=== PATIENT | male | born 1960 | race African-American/Black ===

== ENCOUNTER 2020-10-04 16:49 | Emergency (ER) | payer SELFPAY ==
[~2020-10-04] VITALS: Ht 195.6 cm; Wt 89.0 kg
--- NOTE | 2020-10-04 18:03 | EKG ---
[address] [address] Test Date: 2020-10-04 Test Time: 17:07:14 Pat Name: MIRTHA MOTT Department: Room: Gender: M Mica Splitter: RACHEL : 1960 Requested By: ARTI RYAN Order Number: [id number] Reading MD: Elijah Boston Measurements Intervals [place] Rate: 96 P: 41 NH: 122 QRS: 61 QRSD: 84 T: 30 QT: 334 QTc: 428 Interpretive Statements SINUS RHYTHM Electronically Signed On 10-04-2020 18:50:53 CONTINUOUS LINTER DRIER OPERATOR by Elijah Boston
--- NOTE | 2020-10-04 18:14 | PHYS DOC ---
Adult General Chief Complaint Chief Complaint: SUICIDAL IDEATION HPI HPI Patient is a 59-year-old male patient presents with suicidal ideation. Patient reports he has been had increased rest at home with last several weeks, which has gotten worse. States he has not been sleeping very well for the past couple nights, states he has had increased alcohol intake, up to approximately 8 beers per night. States today he had thoughts of harming self, stated he had plan to overdose on a bottle of pills. States he has never had any suicidal thoughts in the past or depression. States he just knows he is not himself. Denies any suicidal attempts, denies any actual self-harm, denies any thoughts of harming others or homicidal ideation. Does report he had some EtOH this morning, has not had any since that time. (ARTI RYAN APRN) Review of Systems Review of Systems Constitutional: Denies fever or chills [] Eyes: Denies change in visual acuity, redness, or eye pain [] HENT: Denies nasal congestion or sore throat [] Respiratory: Denies cough or shortness of breath [] Cardiovascular: No additional information not addressed in HPI [] GI: Denies abdominal pain, nausea, vomiting, bloody stools or diarrhea [] : Denies dysuria or hematuria [] Musculoskeletal: Denies back pain or joint pain [] Integument: Denies rash or skin lesions [] Neurologic: Denies headache, focal weakness or sensory changes [] Endocrine: Denies polyuria or polydipsia [] All other systems were reviewed and found to be within normal limits, except as documented in this note. (ARTI RYAN APRN) Allergies Allergies Allergies Coded Allergies Type Severity Reaction Last Updated Verified No Known Drug Allergies 10/04/20 No (ARTI RYAN APRN) Physical Exam Physical Exam Constitutional: Well developed, well nourished, no acute distress, non-toxic appearance. [] HENT: Normocephalic, atraumatic, bilateral external ears normal, oropharynx moist, no oral exudates, nose normal. [] Eyes: PERRLA, EOMI, conjunctiva normal, no discharge. [] Neck: Normal range of motion, no tenderness, supple, no stridor. [] Cardiovascular:Heart rate regular rhythm, no murmur [] Lungs & Thorax: Bilateral breath sounds clear to auscultation [] Abdomen: Bowel sounds normal, soft, no tenderness, no masses, no pulsatile masses. [] Skin: Warm, dry, no erythema, no rash. [] Back: No tenderness, no CVA tenderness. [] Extremities: No tenderness, no cyanosis, no clubbing, ROM intact, no edema. [] Neurologic: Alert and oriented X 3, normal motor function, normal sensory function, no focal deficits noted. [] Psychologic: Affect flat, judgement normal, mood depressed. [] (ARTI RYAN APRN) EKG EKG Normal sinus rhythm, no ST changes per Dr. Herbert @ 4705. [] (ARTI RYAN APRN) Radiology/Procedures Radiology/Procedures [] (ARTI RYAN APRN) Heart Score Risk Factors: Risk Factors: DM, Current or recent (<one month) smoker, HTN, HLP, family history of CAD, obesity. Risk Scores: Risk Factors: DM, Current or recent (<one month) smoker, HTN, HLP, family history of CAD, obesity. (ARTI RYAN APRN) Course & Med Decision Making Course & Med Decision Making Pertinent Labs and Imaging studies reviewed. (See chart for details) [] Reviewed results of lab imaging with patient, without acute abnormalities. P atient cleared for mental health screen. Limit of screen, patient to be going home on safety plan. Patient agreed with this plan. We will also start patient on blood pressure medication again, as he had previously been taking however has been out of his medication for a while. Will provide short acting blood pressure condition. Lower blood pressure restarting his blood pressure medication tomorrow morning. Patient reports he has good support system at home, family and children. Reports he understands he made a mistake yesterday when he reports he tried some drugs to do with the situation and realizes that this was not the best decision. 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 Patient does report he is going to decrease his alcohol intake and he understands what he needs to do now, reports he wants to return to [place] as he previously had been and live a healthier life. Will provide dose of Clonidine tonight, due to hypertension here, and patient to Restart his Amlodipine tomorrow AM. (ARTI RYAN APRN) Dragon Disclaimer Dragon Disclaimer This electronic medical record was generated, in whole or in part, using a voice recognition dictation system. (ARTI RYAN APRN) Departure Departure: Impression: Primary Impression: Depression Additional Impressions: Suicidal ideation Hypertension Disposition: 01 DC HOME SELF CARE/HOMELESS Condition: STABLE Referrals: PCP,NO (PCP) Patient Instructions: Depression, Adult, Hypertension Additional Instructions: As we discussed and as discussed with your counselor henrietta, make sure you are following the steps outlined in your safety plan. Stay with your family and friends. Continue to avoid alcohol and other illicit substances. Contact the crisis line if you start to feel suicidal, or increased depression which you cannot handle. Make sure you are taking your blood pressure medication as prescribed, your 30-day supply, after this you need to contact your primary care provider to have a refill. Try to plan for this refill well before the 30 days to have sufficient time to get in to a clinic evaluation and monitoring of your blood pressure. Scripts Amlodipine Besylate (AMLODIPINE BESYLATE) 5 Mg Tablet 1 TAB PO DAILY for hypertension, #30 TAB 0 Refills Contact your primary care provider for refills Prov: ARTI RYAN APRN 10/04/20 Attending Co-Sign Attending Co-Sign The patient was seen and interviewed as well as examined at the bedside. The chart was reviewed. The case was discussed. Agree with the plan of care. (HA KURTZ MD) Problem Qualifiers Primary Impression: Depression Depression Type: other depression Qualified Codes: F32.89 - Other specified depressive episodes Additional Impressions: Hypertension Hypertension type: essential hypertension Qualified Codes: I10 - Essential (primary) hypertension ARTI RYAN APRN Oct 04, 2020 18:14 HA KURTZ MD Oct 05, 2020 05:03
[2020-10-04 18:20] LABS: CALCIUM 9.7 mg/dL (8.5-10.1); CREATININE 1.6 mg/dL (0.7-1.3); GFR 54.2
[2020-10-04 18:27] LABS: ALBUMIN 4.2 g/dL (3.4-5.0); BASO # 0.1 x10^3/uL (0.0-0.2); BASO % 1 % (0-3); EOS # 0.1 x10^3/uL (0.0-0.7); EOS % 1 % (0-3); HEMATOCRIT 44.3 % (39.0-53.0); HEMOGLOBIN 15.3 g/dL (13.0-17.5); LYMPH # 1.5 x10^3/uL (1.0-4.8); LYMPH % 27 % (24-48); MEAN CORPUSCULAR HEMOGLOBIN 33 pg (25-35); MEAN CORPUSCULAR HGB CONC 34 g/dL (31-37); MEAN CORPUSCULAR VOLUME 95 fL (79-100); MONO # 0.5 x10^3/uL (0.0-1.1); MONO % 9 % (0-9); NEUT # 3.4 x10^3uL (1.8-7.7); NEUT % 62 % (31-73); PLATELET COUNT 246 x10^3/uL (140-400); RED BLOOD COUNT 4.68 x10^6/uL (4.30-5.70); RED CELL DISTRIBUTION WIDTH 12.3 % (11.5-14.5); TOTAL BILIRUBIN 0.9 mg/dL (0.2-1.0); TOTAL PROTEIN 8.5 g/dL (6.4-8.2); WHITE BLOOD COUNT 5.5 x10^3/uL (4.0-11.0)
[2020-10-04 18:28] LABS: BARBITURATES NEG (NEG); BENZODIAZEPINES NEG (NEG); CANNABINOIDS POS (NEG); COCAINE POS (NEG); METHADONE NEG (NEG); OPIATES NEG (NEG); PHENCYCLIDINE NEG (NEG)
[2020-10-04 18:34] LABS: ACETAMIN < 2.0 mcg/mL (10-30); ETHANOL < 10 mg/dL (0-10); SALIC < 2.8 mg/dL (2.8-20.0)
[2020-10-04 18:35] LABS: AMPHETAMINE/METHAMPHETAMINE NEG (NEG)
[2020-10-04 18:38] LABS: BACTERIA,URINE 0 /HPF (0-FEW); BILIRUBIN,URINE NEG (NEG); CLARITY,URINE CLEAR; COLOR,URINE YELLOW; GLUCOSE,URINE NEG (NEG); NITRITE,URINE NEG (NEG); RBC,URINE 0 /HPF (0-2); UROBILINOGEN,URINE 0.2 mg/dL (0.2 mg/dL); WBC,URINE 0 /HPF (0-4)
[2020-10-04] MEDS ORDERED: cloNIDine HCL 0.1 MG TABLET PO ONE (21:15)
[2020-10-04] MEDS ORDERED: AMLO-186 PO (21:19)
[2020-10-04 21:25] VITALS: BP 193/100
== END 2020-10-04 21:40 | disposition home or self-care (01) ==
LOC: ER 16:49 → EEVIPCON 16:49 → ER 21:40
DX: R45.851 Suicidal ideations (principal); F32.89 Other specified depressive episodes; I10 Essential (primary) hypertension
CPT/HCPCS: 36415; 80053; 80307; 80329; 81001; 85025; 93005; 99285; G0480

== ENCOUNTER 2021-06-15 17:29 | Emergency (ER) | payer SELFPAY ==
[~2021-06-15] VITALS: Ht 195.6 cm; Wt 89.0 kg
[~2021-06-15 17:29] MED LIST: AMLO-186 PO
[2021-06-15] MEDS ORDERED: ONDANSETRON PF 4 MG/2 ML VIAL. ONE (18:16)
[2021-06-15] MEDS ORDERED: ACETAMINOPHEN 500 MG TABLET PO ONE (18:30)
[2021-06-15] MEDS ORDERED: IV RINGERS SOLUTION,LACTATED 1,000 ML IV ONE (18:30)
[2021-06-15] MEDS ORDERED: ONDANSETRON PF 4 MG/2 ML VIAL. IVP ONE (18:30)
--- NOTE | 2021-06-15 18:31 | PHYS DOC ---
Past History Past Medical History: Hypertension Past Surgical History: No Surgical History Additional Past Surgical Histo: ORIF left tib/fib Alcohol Use: Rarely Adult General Chief Complaint Chief Complaint: MULTIPLE COMPLAINTS HPI HPI Patient is a 60-year-old male who presents with a couple days of loss of taste and smell, productive cough, body aches Review of Systems Review of Systems Review of systems otherwise unremarkable except noted in HPI Current Medications Current Medications Current Medications Medications (Trade) Dose Ordered Sig/Joseph Start Time Stop Time Status Last Admin Dose Admin Acetaminophen (Tylenol) 1,000 mg 1X ONCE 06/15/21 18:30 06/15/21 18:31 Lactated Ringer's 1,000 ml @ 1,000 mls/hr 1X ONCE 06/15/21 18:30 06/15/21 19:29 Ondansetron HCl (Zofran) 4 mg STK-MED ONCE 06/15/21 18:16 06/15/21 18:16 DC Allergies Allergies Allergies Coded Allergies Type Severity Reaction Last Updated Verified No Known Drug Allergies 06/15/21 No Physical Exam Physical Exam Constitutional: Well developed, well nourished, no acute distress, non-toxic appearance. [] HENT: Normocephalic, atraumatic, tympanic membranes normal, oropharynx moist, no oral exudates, nose normal. [] Eyes: conjunctiva normal, no discharge. [] Neck: Normal range of motion, no tenderness, supple, no stridor. [] Cardiovascular: Sinus tachycardia Lungs & Thorax: Bilateral scattered global rhonchi Abdomen: soft, no tenderness, no masses, no pulsatile masses. [] Skin: Warm, dry, no erythema, no rash. [] Extremities: No tenderness, ROM intact, no edema. [] Neurologic: Alert and oriented X 3, no focal deficits noted. [] Psychologic: Affect normal, judgement normal, mood normal. [] Current Patient Data Vital Signs Vital Signs Date Time Temp Pulse Resp B/P (MAP) Pulse Ox O2 Delivery O2 Flow Rate FiO2 06/15/21 17:40 100.1 99 20 163/91 97 EKG EKG [] Radiology/Procedures Radiology/Procedures []dy: XR CHEST 1V Indication: Cough. Comparison: None. Findings: Basilar predominant airspace infiltrates bilaterally. No layering effusion or pneumothorax. The cardiomediastinal silhouette is within normal limits for size. Relatively symmetric trudy. Impression: Basilar predominant airspace infiltrates on both the right and left. Though nonspecific, the distribution is suspicious for an atypical/viral pneumonia. Electronically signed by: GILBERTO MILLS MD (06/15/2021 7:08 PM) [facility] Heart Score C/O Chest Pain: No Risk Factors: Risk Factors: DM, Current or recent (<one month) smoker, HTN, HLP, family history of CAD, obesity. Risk Scores: Risk Factors: DM, Current or recent (<one month) smoker, HTN, HLP, family history of CAD, obesity. Course & Med Decision Making Course & Med Decision Making Patient is a 60-year-old male who presents with a couple days of cold/Covid/flu symptoms Vital signs notable for sinus tachycardia, low-grade fever and hypertension. Physical exam noted above. Given oral pain medicine/fever reducers. Given IV fluid resuscitation. Given cough syrup. Covid swab pending. Given Covid education. Started on antibiotics given pneumonia on chest x-ray. Gave advice on symptom control at home. Advised to follow-up with primary care physician in the morning to update on ED visit. Gave return precautions to the ED. Patient grateful, verbalized understanding and agreed with plan of discharge. [] Dragon Disclaimer Dragon Disclaimer This electronic medical record was generated, in whole or in part, using a voice recognition dictation system. Departure Departure: Impression: Primary Impression: Pneumonia Disposition: HOME / SELF CARE / HOMELESS Condition: IMPROVED Referrals: PCP,NO (PCP) OBINNA GILBERT MD Patient Instructions: Pneumonia, Adult, Viral Syndrome Additional Instructions: Thank you for coming into the emergency department today and allowing us to take care of you. Please read all the attached information very carefully to go back over what we discussed. Please call your primary care physician first thing in the morning to update on ED visit and set up a follow-up as soon as possible. You have been tested for COVID-19. It is an infection caused by a new type of coronavirus. COVID-19 will cause cold-like or mild flu symptoms in most. It can cause more severe symptoms like problems breathing in some. There is no treatment for COVID-19. The body will clear the infection over time. Self-care will help to ease discomfort. Steps to Take: Self-Care Rest as needed. Healthy habits may help you feel better. Steps include: Choose healthy foods including fruits and vegetables. Drink water throughout the day. Get plenty of sleep each night. If you smoke, try to quit. It may ease breathing. Avoid alcohol. Keep Others Healthy The virus can spread to others. Droplets are released every time you sneeze or cough. The droplets can get into the mouth, nose, or eyes of people near you and lead to infection. To lower the chances of spreading COVID-19 to others: Stay at home until your doctor has said it is safe to leave. If you tested positive this will mean staying isolated until both of the following are true: At least 7 days have passed since the start of illness. You are free of fever for at least 72 hours without the use of medicine. During this time: - Avoid public areas, events, or transportation. Do not return to work or school until your doctor has said it is safe to do so. - Call ahead if you need to go to a medical center. Let them know you may have COVID-19. It will help them guide you where to go. They may also ask you to wear a facemask when you come to the office. - If you call for emergency medical services, let them know you may have COVID- 19. While at home: - Try to avoid close contact with others. Stay about 6 feet away. - If possible, spend most of your time in a separate room from others. - Use a face mask if you will be in close contact with others such as sharing a room or vehicle. - Have someone wipe down common surfaces in the home. Use household software sales executive every day on areas like doorknobs, counters, or sinks. - Cough or sneeze into a tissue. Throw the tissue away right after use. If a tissue is not available, cough or sneeze into your elbow. - Wash your hands often. Wash them after sneezing or coughing. Use soap and water and wash for at least 20 seconds. Alcohol based hand engine cleaner can be used if soap and water is not available. - Do not prepare food for others. Avoid sharing personal items like forks, spoons, or toothbrushes. - Avoid close contact with pets while you are sick. There is no evidence of the virus passing to pets. This is a safety step until more is known about this virus. Isolation can be frustrating. Social interaction can help. Keep in touch with friends and family through phone and tech options. You can still interact with others in your home, just keep a safe distance of about 6 feet. Follow-up: Your doctors office will check in with you to see if there are any changes in your health. You may be asked to keep track of symptoms to share with them. They will also let you know when you are clear to be in public again. Problems to Look Out For: Contact your doctor if your recovery is not going as you expect. Get emergency care if you have problems such as: - Trouble breathing - Nonstop chest pain or pressure - Changes in awareness, confusion, or problems waking - Lips or face have bluish color - Worsening of symptoms If you think you have an emergency, call for emergency medical services right away. As taken from [facility] Scripts Amoxicillin/Potassium Clav (AUGMENTIN 875-125 TABLET) 1 Each Tablet 1 TAB PO BID for pneumonia for 10 Days, #20 TAB 0 Refills Prov: WILLIAN ZAMUDIO MD 06/15/21 WILLIAN ZAMUDIO MD Jun 15, 2021 18:31
[2021-06-15] MEDS ORDERED: guaiFENesin/CODEINE 100mg/10mg 5 ML LIQUID PO PRN (19:00)
[2021-06-15] MEDS ORDERED: AMOX1TAB61 PO (19:06)
--- NOTE | 2021-06-15 19:10 | RAD ---
Study: XR CHEST 1V Indication: Cough. Comparison: None. Findings: Basilar predominant airspace infiltrates bilaterally. No layering effusion or pneumothorax. The cardi omediastinal silhouette is within normal limits for size. Relatively symmetric trudy. Impression: Basilar predominant airspace infiltrates on both the right and left. Though nonspecific, the distribu tion is suspicious for an atypical/viral pneumonia. Electronically signed by: GILBERTO MILLS MD (06/15/2021 7:08 PM) [facility]
[2021-06-15] MEDS ORDERED: AMOXICILLIN/K CLAV 875/125MG TABLET. PO ONE (19:30)
[2021-06-15] MEDS ORDERED: GUAI118L13 PO (19:50)
[2021-06-15 19:55] VITALS: BP 152/82
== END 2021-06-15 19:58 | disposition home or self-care (01) ==
LOC: ER 17:29
DX: U07.1 COVID-19 (principal); J18.9 Pneumonia, unspecified organism; I10 Essential (primary) hypertension
CPT/HCPCS: 71045; 96361; 96374; 99284; C9803; J2405; J7120; U0003